=== PATIENT | male | born 1955 | race Caucasian/White ===

== ENCOUNTER 2022-07-25 12:51 | Emergency (ER) | payer MEDICARE, OTHER ==
[~2022-07-25] VITALS: Ht 180.3 cm; Wt 95.5 kg
[2022-07-25] MEDS ORDERED: DESYREL50 MG PO (12:58)
[2022-07-25] MEDS ORDERED: COLESTID5 GM/PACKE PO (12:58)
[2022-07-25] MEDS ORDERED: IMODIUM2 MG PO (12:59)
[2022-07-25] MEDS ORDERED: ZESTRIL5 M1 PO (12:59)
[2022-07-25] MEDS ORDERED: TESTOSTERONE INJ (13:00)
[2022-07-25 13:19] LABS: BASO # 0.03 K/mm3 (0.02-0.10); EOS # 0.09 K/mm3 (0.04-0.40); EOS % 1.6 % (0.0-4.0); HEMATOCRIT 44.9 % (42.0-52.0); HEMOGLOBIN 14.6 g/dL (13.5-18.0); MEAN CELL VOLUME 89 fl (78-100); MEAN CORPUSCULAR HEMOGLOBIN 29 pg (27-31); MEAN CORPUSCULAR HGB CONC 33 g/dL (33-37); MONO # 0.58 K/mm3 (0.20-0.80); NEU # 3.45 K/mm3 (1.40-6.50); PLATELET COUNT 158 K/mm3 (130-400); RED BLOOD COUNT 5.03 M/mm3 (4.20-5.60); RED CELL DISTRIBUTION WIDTH 13.2 % (11.5-14.5); WHITE BLOOD COUNT 5.6 K/mm3 (4.8-10.8)
[2022-07-25 13:31] LABS: ALBUMIN 3.9 g/dL (3.4-4.8)
[2022-07-25 13:32] LABS: POTASSIUM 4.1 mmol/L (3.5-5.1); SODIUM 139 mmol/L (136-145)
[2022-07-25 13:33] LABS: CALCIUM 9.5 mg/dL (8.3-10.5)
[2022-07-25 13:34] LABS: GLUCOSE 74 mg/dL (75-110); TOTAL PROTEIN 6.7 g/dL (6.2-8.1)
[2022-07-25 13:35] LABS: CARBON DIOXIDE 24 mmol/L (23-31)
[2022-07-25 13:36] LABS: TOTAL BILIRUBIN 0.7 mg/dL (0.2-1.2)
[2022-07-25 13:39] LABS: AST-SGOT 26 U/L (5-34)
[2022-07-25 13:40] LABS: ALT/SGPT 29 U/L (0-55)
[2022-07-25 13:41] LABS: LIPASE 27 U/L (8-78)
[2022-07-25 13:45] LABS: PARTIAL THROMBOPLASTIN TIME 22.1 SECONDS (21.0-32.0); PROTHROMBIN TIME 10.5 SECONDS (9.0-12.0)
[2022-07-25 13:46] LABS: D-DIMER 0.59 mg/L FEU (0.15-0.50)
[2022-07-25 13:48] LABS: TROPONIN-I < 0.030 ng/mL (<0.030)
[2022-07-25 17:03] VITALS: BP 162/95
== END 2022-07-25 17:06 | disposition home or self-care (01) ==
LOC: ED 12:51
PROVIDERS: Nurse Practitioner
DX: R07.89 Other chest pain (principal); Z20.822 Contact with and (suspected) exposure to COVID-19
CPT/HCPCS: J7030; Q9967